=== PATIENT | male | born 1975 | race Caucasian/White ===

== ENCOUNTER 2021-06-17 11:14 | Emergency (ER) | payer MEDICAID, SELFPAY ==
[2021-06-17 11:15] VITALS: BP 127/88; PULSE 77; RESP 16; TEMP 36.6; O2SAT 98; BMI 29.5
--- NOTE | 2021-06-17 11:51 | CT_ITS ---
STUDY: CT CHEST WITHOUT CONTRAST REASON FOR EXAM: Male, 46 years old. Posterior left rib trauma RADIATION DOSAGE (If Supplied By Facility): CTDIvol = ( 19.29 ) mGy, DLP = ( 858.26 ) mGycm TECHNIQUE: Transaxial imaging was performed without the administration of intravenous contrast material. Multiplanar coronal and sagittal images were reformatted. Individualized dose optimization techniques were used for this CT. COMPARISON: None. FINDINGS: The lungs are normal. There is no demonstrated pleural abnormality. Normal heart and pericardium. Normal mediastinum. Calcified right hilar lymph nodes. Normal unenhanced pulmonary arteries. Normal aorta arch and descending thoracic aorta. Normal osseous structures. Tiny nonobstructive bilateral intrarenal calculi. CT/Chest without Contrast IMPRESSION: No acute abnormality is seen. Electronically Signed: Duarte Duarte MD at 12:27 EST ,
--- NOTE | 2021-06-17 11:51 | CT_ITS ---
STUDY: CT BRAIN WITHOUT CONTRAST REASON FOR EXAM: Male, 46 years old. Head injury due to a fall. RADIATION DOSAGE (If Supplied By Facility): CTDIvol = ( 44.99 ) mGy, DLP = ( 863.60 ) mGycm TECHNIQUE: Transaxial CT imaging of the brain was performed without administration of intravenous contrast material. Individualized dose optimization techniques were used for this CT. COMPARISON: No relevant priors. FINDINGS: Normal soft tissue structures. Normal calvarium. Normal size ventricles and extra-axial spaces for the patient''s age. Normal white matter tracts of the cerebral hemispheres. Normal basal ganglia and thalami. Normal brainstem. Normal cerebellum. There is no intracranial hemorrhage. There are no findings of an acute ischemic infarction. Partial opacification of the ethmoid sinuses bilaterally. Air-fluid level in the left sphenoid sinus. Mucosal thickening of the right sphenoid sinus. CT/Brain/Head without Contrast IMPRESSION: Normal unenhanced CT scan of the brain. Sinusitis. Electronically Signed: Duarte Duarte MD at 12:24 EST ,
--- NOTE | 2021-06-17 12:28 | CM.ED ---
SW Note Referral Source: Case Find Referral Reason: No Primary Care Physician (PCP) SW reviewed chart and noted that patient has no PCP. SW provided patient with list of [facility] and [facility]ician List for reference. SW also provided patient with handout ?Where to go When?. No other issues or concerns voiced at this time. SW remains available for any additional needs. Plan: Provided patient with PCP information Michelle ANGULO
--- NOTE | 2021-06-17 13:01 | EX.ED.DYSGE1 ---
HPI History of Present Illness Chief Complaint: Fall Informant: patient Narrative Narrative: 46-year-old male states that he slipped on the ice today injuring his left posterior ribs in the back of his head. No loss of consciousness or vomiting. He notes a scalp hematoma. No hemoptysis. She denies any arm or leg symptoms. No abdominal symptoms. [facility] Medical History Hypertension Allergy/AdvReac Type Severity Reaction Status Date / Time No Known Allergies Allergy Verified 06/17/21 11:17 Social History (Updated 06/17/21 @ 13:[address] Robi Collins DO) current gender identity: male Smoking Status: Current every day smoker tobacco type: cigarettes ROS ROS ED Constitutional Constitutional ED: Denies chills, fever(s) or weight loss Eyes Eyes: Denies change in vision or diplopia ENT ENT ED: Denies ear pain, rhinorrhea or sore throat Cardiovascular Cardiovascular: Reports chest pain; Denies orthopnea, palpitations or racing heartbeat Respiratory/Chest Respiratory/Chest: Denies cough, dyspnea or orthopnea Gastrointestinal Gastrointestinal: Denies abdominal pain, diarrhea, nausea or vomiting Genitourinary Genitourinary ED: Denies dysuria, hematuria or urinary frequency Musculoskeletal Musculoskeletal: Denies arthralgias or myalgias Integumentary Denies abscess or rash Neurologic Neurologic: Reports headache(s); Denies weakness Psychiatric Psychiatric: Denies anxiety, depression, suicidal ideation or suicidal thoughts Endocrine Endocrinology: Denies polydipsia, polyphagia or polyuria Allergic/Immunologic Allergic/Immunologic ED: Denies mouth swelling, tongue swelling or urticaria EXAM Physical Exam Const Vital Signs: 06/17/21 11:15 Temperature 97.8 F Temperature Source Temporal Pulse Rate 77 Respiratory Rate 16 Respiratory Effort Normal Blood Pressure 127/88 H Blood Pressure Mean 101 Pulse Ox 98 Oxygen Delivery Method Room Air Positive well nourished and well developed; Negative for obese General Appearance ED: well developed Nutritional Appearance: Negative for obese HEENT Reports normocephalic, head/scalp atraumatic and moist mucous membranes HEENT Narrative: Left occipital scalp hematoma trauma Eyes PERRL and EOMs intact bilaterally Neck no lymphadenopathy, supple and no JVD Chest Wall Chest Narrative: Tender to palpation of the posterior lower left ribs Resp normal respiratory effort and clear to auscultation bilaterally Cardio regular rate, regular rhythm and no murmurs GI normal to inspection, nondistended, normoactive bowel sounds and non-tender Palpation: soft Back/Spine no CVA tenderness and normal ROM Extremity normal to inspection General Extremety ED: Negative for edema General Extremity: Negative for edema Neuro oriented x3 and CN's II-XII intact bilaterally Sensorium / Orientation: alert Motor Exam: strength 5/5 throughout Psych mental status grossly normal Mood & Affect: Negative for depressed or tearful Skin no rashes or lesions noted and no wounds MDM MDM Radiography Diagnostic Testing: Clinical Impression(s) from Imaging Studies Brain CT 06/17/21 11:51 IMPRESSION: Normal unenhanced CT scan of the brain. Sinusitis. Electronically Signed: Duarte Duarte MD at 12:24 EST , Chest CT 06/17/21 11:51 IMPRESSION: No acute abnormality is seen. Electronically Signed: Duarte Duarte MD at 12:27 EST , Discharge Plan Triage Chief Complaint: Fall ED Provider: Robi Collins Dx/Rx/DC Orders Clinical Impression: Head injury, Contusion of scalp, Contusion of ribs Instructions: ED Head Injury (Adult), ED Contusion, Rib Primary Care Provider: Care Physician,No Primary Referrals: Care Physician,No Primary [Primary Care Provider] - Humberto Wells MECHANICAL CAD DRAFTER, MECHANICAL CAD DRAFTER-C [Nurse Practitioner] - As Needed (for primary care) Disposition Disposition: Home, Self Care
== END 2021-06-17 13:15 | disposition home or self-care (01) ==
PROVIDERS: Emergency Provider Emergency Medicine; Visit Provider Emergency Medicine
DX: S00.03XA Contusion of scalp, initial encounter (principal); S20.212A Contusion of left front wall of thorax, initial encounter; I10 Essential (primary) hypertension; W00.0XXA Fall on same level due to ice and snow, initial encounter; F17.210 Nicotine dependence, cigarettes, uncomplicated
CPT/HCPCS: 70450; 71250; 99282

== ENCOUNTER 2022-11-15 12:52 | Emergency (ER) | payer MEDICAID, SELFPAY ==
[2022-11-15 12:54] VITALS: BP 153/107; PULSE 110; RESP 18; TEMP 36.6; O2SAT 99; BMI 27.9
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
--- NOTE | 2022-11-15 13:02 | RAD_ITS ---
STUDY: X-RAY - RIGHT ELBOW REASON FOR EXAM: Male, 47 years old. Acute pain after trauma TECHNIQUE: 3 view(s) of the elbow. COMPARISON: None. FINDINGS: Normal visualized humerus, radius and ulna. Normal radiocapitellar and ulnotrochlear articulations. Diffuse soft tissue swelling particularly posterior to the proximal ulna suggesting ruptured bursa sac RAD/Elbow min 3 Views IMPRESSION: No fracture or suspicious osseous lesion Extensive soft tissue swelling, ruptured bursa sac suspected Electronically Signed: Jarrett Leach MD at 14:15 EDT ,
--- NOTE | 2022-11-15 13:02 | RAD_ITS ---
STUDY: X-RAY CHEST REASON FOR EXAM: Male, 47 years old. Chest pain after trauma TECHNIQUE: PA and lateral views of the chest. COMPARISON: None. FINDINGS: The lungs are clear and expanded. There is no demonstrated pleural abnormality. Normal size heart. Normal mediastinum and glenroy. Normal visualized pulmonary arteries. Normal visualized aortic arch and descending thoracic aorta. Normal visualized thoracic spine. Surgical hardware is in the left clavicle free of complication. There is no demonstrated abnormality of the visualized soft tissue structures of the upper abdomen. RAD/Chest PA and Lateral IMPRESSION: No acute pulmonary process Electronically Signed: Jarrett Leach MD at 14:14 EDT ,
--- NOTE | 2022-11-15 13:03 | CT_ITS ---
STUDY: CT CERVICAL SPINE WITHOUT CONTRAST REASON FOR EXAM: Male, 47 years old. Trauma RADIATION DOSAGE (If Supplied By Facility): CTDIvol = ( 22.53 ) mGy, DLP = ( 566.89 ) mGycm TECHNIQUE: High resolution transaxial imaging was performed without contrast material. Sagittal and coronal images were reconstructed. Individualized dose optimization techniques were used for this CT. COMPARISON: None FINDINGS: Normal craniovertebral junction. Normal anterior atlantoaxial articulation. Normal odontoid process. There is straightening of the normal cervical lordosis. Normal vertebral bodies and posterior osseous elements. C2-3: Normal endplates. Normal disc height and morphology. Normal central canal and intervertebral neuroforamina. C3-4: Normal endplates. Normal disc height and morphology. Normal central canal and intervertebral neuroforamina. C4-5: Normal endplates. Normal disc height and morphology. Normal central canal and intervertebral neuroforamina. C5-6: Normal endplates. Disc space narrowing with uncovertebral spurs.. Normal central canal and intervertebral neuroforamina. C6-7: Normal endplates. Disc space narrowing with uncovertebral spurs.. Normal central canal and intervertebral neuroforamina. C7-T1: Normal endplates. Normal disc height and morphology. Normal central canal and intervertebral neuroforamina. Normal visualized soft tissue structures. CT/Spine Cervical without Contras IMPRESSION: Mild degenerative changes, no acute findings Electronically Signed: Jarrett Leach MD at 14:13 EDT ,
--- NOTE | 2022-11-15 13:03 | CT_ITS ---
STUDY: CT BRAIN WITHOUT CONTRAST REASON FOR EXAM: Male, 47 years old. Headache after trauma RADIATION DOSAGE (If Supplied By Facility): CTDIvol = ( 44.99 ) mGy, DLP = ( 897.35 ) mGycm TECHNIQUE: Transaxial CT imaging of the brain was performed without administration of intravenous contrast material. Individualized dose optimization techniques were used for this CT. COMPARISON: 06/17/2021 FINDINGS: Normal soft tissue structures. Normal calvarium. Normal size ventricles and extra-axial spaces for the patient''s age. Normal white matter tracts of the cerebral hemispheres. Normal basal ganglia and thalami. Normal brainstem. Normal cerebellum. There is no intracranial hemorrhage. There are no findings of an acute ischemic infarction. Normal visualized paranasal sinuses. CT/Brain/Head without Contrast IMPRESSION: No acute abnormalities. No interval change Electronically Signed: Jarrett Leach MD at 14:00 EDT ,
--- NOTE | 2022-11-15 13:03 | CT_ITS ---
STUDY: CT ABDOMEN AND PELVIS WITH CONTRAST REASON FOR EXAM: Male, 47 years old. Acute pain after trauma RADIATION DOSAGE (If Supplied By Facility): CTDIvol = ( 15.35 ) mGy, DLP = ( 871.02 ) mGycm TECHNIQUE: Transaxial images were obtained from the dome of the diaphragm to the symphysis pubis without oral contrast. IV 100mL [id number]-[id number] was administered. Sagittal and coronal images were reconstructed. Individualized dose optimization techniques were used for this CT. COMPARISON: None. FINDINGS: The visualized lung bases are unremarkable. The visualized portions of the heart are within normal limits. Normal liver. Normal gallbladder and extrahepatic biliary system. Normal spleen. Normal pancreas. Normal bilateral adrenal glands. No obstructive uropathy, or suspicious solid renal lesion, there are punctate nonobstructing left renal stones. Normal visualized stomach. Normal small intestine. Normal colon. There is non-visualization of the appendix. Normal abdominal aorta. Normal inferior vena cava. Normal retroperitoneum. Normal urinary bladder. Normal abdominal wall. Mild degenerative changes in the lumbar spine, no demonstrated fracture or suspicious osseous lesion CT/Abdomen/Pelvis WITH Contrast IMPRESSION: No suspicious solid organ abnormality No free intraperitoneal fluid, air, or suspicious adenopathy Mild degenerative bony changes, no demonstrated fracture Electronically Signed: Jarrett Leach MD at 14:12 EDT ,
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
[2022-11-15 13:05] VITALS: BP 153/107; PULSE 110; RESP 18; O2SAT 99
--- NOTE | 2022-11-15 13:07 | NURSING ---
NO OLD EKGS
[2022-11-15] MEDS: 0.9% Normal Saline 1,000 ML 999 ML IV (13:09)
[2022-11-15 13:25] LABS: Absolute Lymphocyte Count 1.51 X10^3/uL (0.83-4.51); Absolute Neutrophil Count 4.4 X10^3/uL (2.0-7.7); Basophil# 0.05 X10^3/uL; Basophil% 0.8 % (0-1); Eosinophil# 0.15 X10^3/uL; Eosinophils% 2.3 % (0-5); Hematocrit 44.3 % (40-54); Lymphocyte # 1.51 X10^3/ul (0.83-4.51); Lymphocyte % 22.9 % (19-41); Mean Corp Hgb Conc 33.9 g/dL (32-36); Mean Corpuscular Hgb 29.8 pg (27.0-32.0); Mean Corpuscular Volume 87.9 fL (80-94); Mean Platelet Vol. 10.8 fl (6.2-12.0); Monocyte# 0.43 X10^3/uL; Monocyte% 6.5 % (0-10); NRBC Flagged by Analyzer 0 % (0-5); Neutrophil # 4.44 X10^3/uL (2.7-7.7); Neutrophil % 67.3 % (47-70); Platelet Count 253 K/mm3 (150-450); RBC Distribution Width CV 12.9 % (11.6-14.6); RBC Distribution Width SD 41.5 fl (35.1-43.9); Red Blood Count 5.04 M/mm3 (4.6-6.2); White Blood Count 6.6 K/mm3 (4.4-11.0)
[2022-11-15 13:30] LABS: AST(SGOT) 26 U/L (15-37); Alanine Aminotransfer ALT/SGPT 27 U/L (16-61); Alkaline Phosphatase 98 U/L (45-117); Anion Gap 6 (5-15); BUN 20 mg/dL (7-18); BUN/Creat Ratio 21.1 RATIO (10-20); Bilirubin, Direct 0.24 mg/dL (0.00-0.30); Calcium,Total 9.5 mg/dL (8.5-10.1); Chloride 105 mmol/L (98-107); Creatinine, Serum 0.95 mg/dL (0.70-1.30); EST Glomerular Filtration Rate 91 mL/min (>60); Est Glom Filt Rate - Afr Amer 110 mL/min (>60); Estimated Creatinine Clearance 97.16 ml/min; Globulin 3.8 g/dL (2.2-4.2); Glucose 94 mg/dL (74-106); Potassium 3.3 mmol/L (3.5-5.1); Protein, Total 7.8 g/dL (6.4-8.2); Sodium Level 139 mmol/L (136-145)
[2022-11-15 13:36] LABS: Partial Thromboplast Time 29.1 Seconds (24.1-36.2); Prothrombin Time (Protime)PT. 12.7 SECONDS (11.7-14.9)
[2022-11-15 14:00] VITALS: BP 159/107; PULSE 85; RESP 16; O2SAT 99
[2022-11-15] MEDS: Ondansetron 4 MG/2 ML Vial IV (14:04)
[2022-11-15] MEDS: fentaNYL 100 MCG/2 ML Ampul 50 MCG IV (14:07)
== END 2022-11-15 15:14 | disposition home or self-care (01) ==
PROVIDERS: Emergency Provider Emergency Medicine; Visit Provider Emergency Medicine
DX: S06.0X1A Concussion with loss of consciousness of 30 minutes or less, initial encounter (principal); I48.0 Paroxysmal atrial fibrillation; S80.02XA Contusion of left knee, initial encounter; Z87.891 Personal history of nicotine dependence; S50.01XA Contusion of right elbow, initial encounter; Y92.410 Unspecified street and highway as the place of occurrence of the external cause; I10 Essential (primary) hypertension; R41.3 Other amnesia; S20.91XA Abrasion of unspecified parts of thorax, initial encounter; V23.49XA Other motorcycle driver injured in collision with car, pick-up truck or van in traffic accident, initial encounter
CPT/HCPCS: 70450; 71046; 72125; 73080; 74177; 80048; 80076; 85025; 85610; 85730; 93005; 96361; 96374; 96375; 99285; J7030; Q9967; A4216; J2405

== ENCOUNTER 2023-12-10 09:35 | Emergency (ER) | payer MEDICAID, SELFPAY ==
[2023-12-10 09:35] VITALS: BP 137/89; PULSE 80; RESP 14; TEMP 36.4; O2SAT 98; BMI 34.3
--- NOTE | 2023-12-10 10:13 | EKG12_ITS ---
Test Reason : CP Blood Pressure : / mmHG Vent. Rate : 078 BPM Atrial Rate : 078 BPM P-R Int : 192 ms QRS Dur : 100 ms QT Int : 372 ms P-R-T Axes : 026 048 016 degrees QTc Int : 424 ms Normal sinus rhythm Normal ECG Confirmed by Tomas Sanders ([id number]), website/blog editor RADHA SIMMONS ([id number]) on 12/13/2023 9:17:04 AM Referred By: [facility] Confirmed By:Tomas Sanders
--- NOTE | 2023-12-10 10:13 | RAD_ITS ---
INDICATION: chest pain EXAMINATION/TECHNIQUE: X-RAY - XR Chest 1 View COMPARISON: Prior study dated: 11/15/2022 FINDINGS: LINES/DEVICES: None. LUNGS: No consolidation, edema or effusion. Small right lower lobe granuloma No pneumothorax. MEDIASTINUM AND CARDIOVASCULAR STRUCTURES: Cardiac silhouette not enlarged. Central airways and mediastinal contour are unremarkable. BONES AND SOFT TISSUES: Unchanged osseous structures. Side plate and screws securing previous fracture of the left clavicle. RAD/Chest 1 View (Portable) IMPRESSION: No radiographic evidence of acute cardiopulmonary disease. Electronically Signed: Adam Samaniego MD at 11:00 EDT ,
--- NOTE | 2023-12-10 10:15 | EDS_ITS ---
HPI History of Present Illness Chief Complaint: Chest Pain Informant: patient and spouse/S.O. Narrative Narrative: 48-year-old male presenting to the emergency room with a variety of symptomology. Patient states he had a day off work today so he wanted to be seen. He states he does not regularly go to the doctor. He notes that he started testosterone therapy at the beginning of the month. For the past 2 weeks he notes swelling of the lower extremities bilaterally and his hands feel tight particularly in the mornings. Yesterday he felt a sharp shooting pain in the left arm that does not normally get. He has a history of A-fib and intermittently feels this in the center of his chest. He did not feel it yesterday. He notes pain in the low back when getting out of bed riding in his truck and sometimes it radiates on his right side around into his abdomen. He notes he is urinating normally. No change in bowel habits. No recent weight loss. He states he was supposed to get a sleep study but has not yet been able to do that due to work issues. He sleeps poorly but states that that is because of insomnia and pain. He takes lisinopril Suboxone and testosterone currently. [facility] Medical History Paroxysmal atrial fibrillation Hypertension Home Medications ?Medication ?Instructions ?Recorded ?Last Taken ?Type albuterol sulfate 90 mcg/actuation 1 puff inhalation Q4H 11/15/22 Unknown History aerosol inhaler buprenorphine 8 mg-naloxone 2 mg 1 tab sublingual Q24H 11/15/22 Unknown History sublingual tablet lisinopril 10 mg tablet mg 11/15/22 Unknown History lisinopril 20 mg tablet mg 11/15/22 Unknown History furosemide 40 mg tablet 40 mg PO DAILY #7 tabs 12/10/23 Unknown Rx testosterone cypionate 200 mg/mL 200 mg IM QWEEK 12/10/23 Unknown History intramuscular oil Allergy/AdvReac Type Severity Reaction Status Date / Time No Known Allergies Allergy Verified 12/10/23 09:36 Social History Smoking Status: Current every day smoker tobacco type: cigarettes ROS ROS ED Constitutional Constitutional ED: Denies chills, fever(s) or weight loss Eyes Eyes: Denies change in vision or diplopia ENT ENT ED: Denies ear pain, rhinorrhea or sore throat Cardiovascular Cardiovascular: Reports chest pain and palpitations; Denies orthopnea or racing heartbeat Respiratory/Chest Respiratory/Chest: Reports other Details: Chronic cough from smoking ; Denies dyspnea or orthopnea Gastrointestinal Gastrointestinal: Reports abdominal pain; Denies diarrhea, nausea or vomiting Genitourinary Genitourinary ED: Denies dysuria, hematuria or urinary frequency Musculoskeletal Musculoskeletal: Reports back pain and other Details: Bilateral lower extremity swelling left arm pain yesterday ; Denies arthralgias or myalgias Integumentary Denies abscess or rash Neurologic Neurologic: Denies headache(s) or weakness Psychiatric Psychiatric: Denies anxiety, depression, suicidal ideation or suicidal thoughts Endocrine Endocrinology: Denies polydipsia, polyphagia or polyuria Allergic/Immunologic Allergic/Immunologic ED: Denies mouth swelling, tongue swelling or urticaria EXAM Physical Exam Const Vital Signs: 12/10/23 09:35 12/10/23 09:57 12/10/23 11:35 Temperature 97.5 F L Temperature Source Temporal Pulse Rate 80 72 Respiratory Rate 14 18 Respiratory Effort Normal Non-Labored Respiratory Pattern Normal Blood Pressure 137/89 H 161/93 H Blood Pressure Mean 105 115 Pulse Ox 98 97 Oxygen Delivery Method Room Air Room Air 12/10/23 11:35 Temperature 97.9 F Temperature Source Pulse Rate 72 Respiratory Rate 18 Respiratory Effort Respiratory Pattern Blood Pressure 161/93 H Blood Pressure Mean 115 Pulse Ox 99 Oxygen Delivery Method Positive well nourished and well developed General Appearance ED: well developed HEENT Reports normocephalic, head/scalp atraumatic and moist mucous membranes Eyes PERRL and EOMs intact bilaterally Neck no lymphadenopathy, supple and no JVD Resp normal respiratory effort and clear to auscultation bilaterally Cardio regular rate, regular rhythm and no murmurs GI normal to inspection, nondistended, normoactive bowel sounds and non-tender Palpation: soft Back/Spine no CVA tenderness and normal ROM Extremity General Extremety ED: Yes edema; Negative for tenderness General Extremity: edema bilateral lower extremity Details: mild Neuro oriented x3 and CN's II-XII intact bilaterally Sensorium / Orientation: alert Motor Exam: strength 5/5 throughout Psych mental status grossly normal Mood & Affect: Negative for depressed or tearful Skin no rashes or lesions noted and no wounds MDM MDM MDM Narrative Medical decision making narrative: Differential diagnosis includes but not limited to acute coronary syndrome pneumothorax renal dysfunction liver dysfunction anemia hypothyroidism White count 5.3 with hemoglobin of 14.2 platelet count of 214. Normal BMP normal LFTs normal troponin normal TSH. My independent interpretation of the chest x-ray is no acute process normal mediastinal silhouette. His EKG is normal. I do not believe this to be acute coronary syndrome. I can place him on Lasix for several days have him monitor salt and fluid intake. Is possible that the lymphedema could be related to the testosterone replacement time and having speak to his doctor about whether or not he should take the next injection. I believe that there are positive lifestyle changes such as quitting smoking that he can take to improve his health. The patient I think would benefit from consistent primary care preventative medicine. History & Record Review Discussion w/independent historian: Patient Lab Data Attestation: I reviewed the patient's lab results. Labs: Laboratory Results - last 24 hr 12/10/23 10:20 WBC 5.3 RBC 4.75 Hgb 14.2 Hct 43.3 MCV 91.2 MCH 29.9 MCHC 32.8 RDW Std Deviation 45.5 H RDW Coeff of Anupama 13.6 Plt Count 214 MPV 10.8 Immature Gran % (Auto) 0.600 Neut % (Auto) 44.9 L Lymph % (Auto) 34.4 [place] % (Auto) 12.9 H Eos % (Auto) 6.1 H Baso % (Auto) 1.1 H Absolute Neuts (auto) 2.4 Absolute Lymphs (auto) 1.81 Nucleated RBC % 0 Sodium 139 Potassium 3.7 Chloride 105 Carbon Dioxide 29.0 Anion Gap 5 BUN 15 Creatinine 0.88 Estim Creat Clear Calc 124.26 Est GFR (MDRD) Af Amer 120 Est GFR (MDRD) Non-Af 99 BUN/Creatinine Ratio 17.1 Glucose 100 Calcium 8.7 Total Bilirubin 0.50 Direct Bilirubin 0.12 AST 23 ALT 21 Alkaline Phosphatase 88 Troponin I High Sens 5 Total Protein 7.0 Albumin 3.4 Globulin 3.6 TSH 1.480 Radiography Diagnostic Testing: Clinical Impression(s) from Imaging Studies Chest X-Ray 12/10/23 10:13 IMPRESSION: No radiographic evidence of acute cardiopulmonary disease. Electronically Signed: Adam Samaniego MD at 11:00 EDT , EKG Initial EKG: Attestation: I personally reviewed and interpreted this EKG as follows: Comments: Normal sinus rhythm ventricular rate of 78 bpm Discharge Plan Triage Chief Complaint: Chest Pain ED Provider: Robi Collins Dx/Rx/DC Orders Clinical Impression: Lymphedema, Chest pain Instructions: ED Lymphedema Prescriptions: New furosemide 40 mg tablet 40 mg PO DAILY Qty: 7 0RF No Action lisinopril 20 mg tablet Patient Comments: TAKE 1 TABLET BY MOUTH ONCE DAILY lisinopril 10 mg tablet Patient Comments: TAKE 1 TABLET BY MOUTH ONCE DAILY buprenorphine-naloxone 8-2 mg tablet, sublingual 1 tab SUBLINGUAL Q24H Patient Comments: PLACE 1 TABLET UNDER THE TONGUE TWICE DAILY albuterol sulfate 90 mcg/actuation HFA aerosol inhaler 1 puff INHALATION Q4H Patient Comments: INHALE 1 PUFF BY MOUTH EVERY 4 HOURS NEEDED testosterone cypionate 200 mg/mL oil 200 mg IM QWEEK Primary Care Provider: Care Physician,No Primary Referrals: Care Physician,No Primary [Primary Care Provider] - Activity Restrictions/Additional Instructions: As discussed I would like you to discuss your lower extremity swelling and your symptoms with your primary care doctor. I would call and asked their advice regarding taking your next testosterone injection in the setting of your developing lower extremity edema since beginning the therapy. I am placing you on a short course of a water pill (furosemide). Please be advised that this will make you urinate quite frequently. Please schedule early follow-up with your doctor Print Language: Iranian Disposition Disposition: Home, Self Care Discharge Date/Time: 12/10/23 12:06
[2023-12-10 10:28] LABS: Absolute Lymphocyte Count 1.81 X10^3/uL (0.83-4.51); Absolute Neutrophil Count 2.4 X10^3/uL (2.0-7.7); Basophil# 0.06 X10^3/uL; Basophil% 1.1 % (0-1); Eosinophil# 0.32 X10^3/uL; Eosinophils% 6.1 % (0-5); Hematocrit 43.3 % (40-54); Hemoglobin 14.2 g/dL (13.0-16.5); Lymphocyte # 1.81 X10^3/ul (0.83-4.51); Lymphocyte % 34.4 % (19-41); Mean Corp Hgb Conc 32.8 g/dL (32-36); Mean Corpuscular Hgb 29.9 pg (27.0-32.0); Mean Corpuscular Volume 91.2 fL (80-94); Mean Platelet Vol. 10.8 fl (6.2-12.0); Monocyte# 0.68 X10^3/uL; Monocyte% 12.9 % (0-10); NRBC Flagged by Analyzer 0 % (0-5); Neutrophil # 2.36 X10^3/uL (2.7-7.7); Neutrophil % 44.9 % (47-70); Platelet Count 214 K/mm3 (150-450); RBC Distribution Width CV 13.6 % (11.6-14.6); RBC Distribution Width SD 45.5 fl (35.1-43.9); Red Blood Count 4.75 M/mm3 (4.6-6.2); White Blood Count 5.3 K/mm3 (4.4-11.0)
[2023-12-10 10:57] LABS: AST(SGOT) 23 U/L (15-37); Alanine Aminotransfer ALT/SGPT 21 U/L (16-61); Albumin, Serum 3.4 g/dL (3.2-5.0); Alkaline Phosphatase 88 U/L (45-117); Anion Gap 5 (5-15); BUN 15 mg/dL (7-18); BUN/Creat Ratio 17.1 RATIO (10-20); Bilirubin, Direct 0.12 mg/dL (0.00-0.30); Calcium,Total 8.7 mg/dL (8.5-10.1); Chloride 105 mmol/L (98-107); Creatinine, Serum 0.88 mg/dL (0.70-1.30); EST Glomerular Filtration Rate 99 mL/min (>60); Est Glom Filt Rate - Afr Amer 120 mL/min (>60); Estimated Creatinine Clearance 124.26 ml/min; Globulin 3.6 g/dL (2.2-4.2); Glucose 100 mg/dL (74-106); Potassium 3.7 mmol/L (3.5-5.1); Sodium Level 139 mmol/L (136-145); Troponin-I HS (w/2H Reflex) 5 pg/mL (3.0-78.0)
[2023-12-10 11:35] VITALS: BP 161/93; PULSE 72; RESP 18; TEMP 36.6; O2SAT 97; O2SAT 99
[2023-12-10 12:25] LABS: Reflex Troponin-HS? (from REC) Y
== END 2023-12-10 12:06 | disposition home or self-care (01) ==
PROVIDERS: Emergency Provider Emergency Medicine; Visit Provider Emergency Medicine
DX: R07.9 Chest pain, unspecified (principal); I48.0 Paroxysmal atrial fibrillation; I89.0 Lymphedema, not elsewhere classified; I10 Essential (primary) hypertension; F17.210 Nicotine dependence, cigarettes, uncomplicated; Z79.899 Other long term (current) drug therapy
CPT/HCPCS: 71045; 80048; 80076; 84443; 84484; 85025; 93005; 99284; A4216